=== PATIENT | male | born 1935 | race Caucasian/White ===

== ENCOUNTER → 2016-08-23 | Outpatient (CLI) | payer MEDICARE, OTHER ==
[2015-12-04 21:02] VITALS: BP 149/73
[~2016-08-23] MED LIST: CENTURY; CIPRO 500MG TA500 MG; CLOBETASOL PROP0.053 TP; CLOPIDOGREL75 MG; FERROUS SULFATE1 GRA; HYDROXYZINE HCL25 MG PO; LEVAQUIN 5500 MG/TA1 PO; LISINOPRIL10 MG PO; LISINOPRIL20 MG; LOVASTATIN40 MG PO; METFORMIN500 MG; METOPROLOL SUC100 MG; RAPAFLO8 MG; SILDENAFIL CITR20 MG PO; TRIAMCINOLONE A15 GM TP; ZOLPIDEM10 M1; ZOLPIDEM10 MG PO
== END ==
LOC: LAB 07:57
DX: I10 Essential (primary) hypertension (principal); E11.9 Type 2 diabetes mellitus without complications; Z12.5 Encounter for screening for malignant neoplasm of prostate; N52.03 Combined arterial insufficiency and corporo-venous occlusive erectile dysfunction; R20.2 Paresthesia of skin

== ENCOUNTER → 2016-08-25 | Outpatient (CLI) | payer MEDICARE, OTHER ==
[2015-12-04 21:02] VITALS: BP 149/73
== END ==
LOC: RAD 09:01
DX: M54.5 Low back pain (principal); R31.9 Hematuria, unspecified

== ENCOUNTER → 2016-08-29 | Outpatient (CLI) | payer MEDICARE, OTHER ==
[2015-12-04 21:02] VITALS: BP 149/73
== END ==
LOC: RAD 07:49
DX: M54.16 Radiculopathy, lumbar region (principal); R20.2 Paresthesia of skin; M51.27 Other intervertebral disc displacement, lumbosacral region; M48.07 Spinal stenosis, lumbosacral region
CPT/HCPCS: A9579

== ENCOUNTER 2016-09-09 16:00 | Outpatient (RCR) | payer MEDICARE, OTHER ==
[2015-12-04 21:02] VITALS: BP 149/73
== END 2016-09-23 08:54 | disposition home or self-care (01) ==
LOC: PT 16:00
DX: M54.2 Cervicalgia (principal); M15.9 Polyosteoarthritis, unspecified

== ENCOUNTER → 2017-05-17 | Outpatient (CLI) | payer MEDICARE, OTHER ==
[2015-12-04 21:02] VITALS: BP 149/73
[2017-05-17 08:03] LABS: EOS # 0.3 (0.04-0.40); EOS % 4.9 % (0.0-4.0); HEMATOCRIT 42.9 % (42.0-52.0); HEMOGLOBIN 13.9 g/dL (13.5-18.0); LYMPH# 1.1 (1.50-4.00); MEAN CELL VOLUME 92 fl (78-100); MEAN CORPUSCULAR HEMOGLOBIN 30 pg (27-31); MEAN CORPUSCULAR HGB CONC 32 g/dL (33-37); MEAN PLATELET VOLUME 10.1 fl (7.4-10.4); MONO # 0.5 (0.20-0.80); NEU # 3.2 (1.40-6.50); PLATELET COUNT 161 K/mm3 (130-400); RED BLOOD COUNT 4.68 M/mm3 (4.20-5.60); RED CELL DISTRIBUTION WIDTH 13.3 % (11.5-14.5); WHITE BLOOD COUNT 5.1 K/mm3 (4.8-10.8)
[2017-05-17 08:20] LABS: ALBUMIN 3.7 g/dL (3.5-5.0); BUN/CREATININE RATIO 10.3 (6.0-26.0); CALCIUM 9.5 mg/dL (8.4-10.2); POTASSIUM 3.8 mmol/L (3.6-5.0); TOTAL PROTEIN 6.7 g/dL (6.3-8.2)
[2017-05-18 03:43] LABS: TESTOSTERONE 362 ng/dL (221-716)
== END ==
LOC: LAB 07:47
PROVIDERS: Internal Medicine
DX: I10 Essential (primary) hypertension (principal); N52.03 Combined arterial insufficiency and corporo-venous occlusive erectile dysfunction; N52.9 Male erectile dysfunction, unspecified; R20.2 Paresthesia of skin; M10.9 Gout, unspecified; Z88.0 Allergy status to penicillin

== ENCOUNTER → 2017-06-07 | Outpatient (CLI) | payer MEDICARE, OTHER ==
[2015-12-04 21:02] VITALS: BP 149/73
== END ==
LOC: RAD 09:03
DX: S22.080G Wedge compression fracture of T11-T12 vertebra, subsequent encounter for fracture with delayed healing (principal); M48.07 Spinal stenosis, lumbosacral region; M51.27 Other intervertebral disc displacement, lumbosacral region; Z88.0 Allergy status to penicillin
CPT/HCPCS: A9585

== ENCOUNTER → 2017-12-19 | Outpatient (CLI) | payer MEDICARE, OTHER ==
[2015-12-04 21:02] VITALS: BP 149/73
== END ==
LOC: LAB 11:14
DX: R97.20 Elevated prostate specific antigen [PSA] (principal)

== ENCOUNTER → 2018-02-08 | Outpatient (CLI) | payer MEDICARE, OTHER ==
[2015-12-04 21:02] VITALS: BP 149/73
== END ==
LOC: LAB 12:44
PROVIDERS: Urology
DX: C61 Malignant neoplasm of prostate (principal)

== ENCOUNTER → 2018-02-14 | Outpatient (CLI) | payer MEDICARE, OTHER ==
[2015-12-04 21:02] VITALS: BP 149/73
[~2018-02-14] MED LIST changes: +CLOPIDOGREL PO; +GLUCOPHAGE500 MG/TAB PO; +NORVASC 10MG10 MG PO
== END ==
LOC: LAB 14:12
PROVIDERS: Urology
DX: C61 Malignant neoplasm of prostate (principal); R31.21 Asymptomatic microscopic hematuria

== ENCOUNTER 2018-02-19 20:26 | Emergency (ER) | payer MEDICARE, OTHER ==
[~2018-02-19 20:26] MED LIST changes: -CLOPIDOGREL PO; -GLUCOPHAGE500 MG/TAB PO; -NORVASC 10MG10 MG PO
[2018-02-19 20:52] LABS: EOS # 0.1 (0.04-0.40); EOS % 0.8 % (0.0-4.0); HEMATOCRIT 45.2 % (42.0-52.0); HEMOGLOBIN 14.9 g/dL (13.5-18.0); LYMPH# 2.9 (1.50-4.00); MEAN CELL VOLUME 90 fl (78-100); MEAN CORPUSCULAR HEMOGLOBIN 30 pg (27-31); MEAN CORPUSCULAR HGB CONC 33 g/dL (33-37); MEAN PLATELET VOLUME 10.4 fl (7.4-10.4); MONO # 1.3 (0.20-0.80); NEU # 8.6 (1.40-6.50); PLATELET COUNT 227 K/mm3 (130-400); RED BLOOD COUNT 5.02 M/mm3 (4.20-5.60); RED CELL DISTRIBUTION WIDTH 13.8 % (11.5-14.5); WHITE BLOOD COUNT 12.9 K/mm3 (4.8-10.8)
[2018-02-19 20:59] LABS: ALBUMIN 3.9 g/dL (3.5-5.0); CALCIUM 9.7 mg/dL (8.4-10.2); POTASSIUM 3.5 mmol/L (3.6-5.0); TOTAL BILIRUBIN 1.3 mg/dL (0.2-1.3); TOTAL PROTEIN 6.7 g/dL (6.3-8.2)
[2018-02-19 21:06] LABS: PROTHROMBIN TIME 10.4 SECONDS (9.0-12.0)
[2018-02-19 22:25] LABS: LIPASE 69 U/L (23-300)
[2018-02-19] MEDS ORDERED: GLUCOPHAGE500 MG/TAB PO (22:33)
[2018-02-19] MEDS ORDERED: NORVASC 10MG10 MG PO (22:34)
[2018-02-19] MEDS ORDERED: CLOPIDOGREL PO (22:34)
[2018-02-19 22:46] LABS: URINE APPEARANCE CLEAR; URINE BILIRUBIN NEGATIVE (NEGATIVE); URINE COLOR YELLOW; URINE GLUCOSE NEGATIVE (NEGATIVE); URINE KETONE NEGATIVE (NEGATIVE); URINE NITRATE NEGATIVE (NEGATIVE); URINE PROTEIN(semi-quant) TRACE mg/dL (NEGATIVE); URINE UROBILINOGEN NORMAL (NORMAL)
[2018-02-19 22:47] LABS: URINE BLOOD TRACE (NEGATIVE); URINE LEUKOCYTE ESTERASE NEGATIVE (NEGATIVE); URINE MUCUS PRESENT (NOT PRESENT); URINE WBC 0-1 /hpf (0-3)
[2018-02-19 22:48] VITALS: BP 141/77
== END 2018-02-19 22:48 | disposition other institution (70) ==
LOC: ED 20:26
PROVIDERS: Nurse Practitioner
DX: A41.9 Sepsis, unspecified organism (principal); K57.32 Diverticulitis of large intestine without perforation or abscess without bleeding; C61 Malignant neoplasm of prostate; Z87.19 Personal history of other diseases of the digestive system; Z87.891 Personal history of nicotine dependence; Z79.02 Long term (current) use of antithrombotics/antiplatelets; Z79.84 Long term (current) use of oral hypoglycemic drugs; Z79.899 Other long term (current) drug therapy
CPT/HCPCS: J2060; J3010; Q9967

== ENCOUNTER 2018-02-19 22:48 | Inpatient (IN) | payer MEDICARE, OTHER ==
[~2018-02-19] VITALS: Ht 172.7 cm; Wt 76.8 kg
[~2018-02-19 22:48] MED LIST changes: +CLOPIDOGREL PO; +GLUCOPHAGE500 MG/TAB PO; +NORVASC 10MG10 MG PO
[2018-02-19 23:58] VITALS: BP 141/77
[2018-02-20 00:02] VITALS: BP 141/77
[2018-02-20 05:15] LABS: HEMATOCRIT 41.8 % (42.0-52.0); HEMOGLOBIN 13.9 g/dL (13.5-18.0); MEAN CELL VOLUME 91 fl (78-100); MEAN CORPUSCULAR HEMOGLOBIN 30 pg (27-31); MEAN CORPUSCULAR HGB CONC 33 g/dL (33-37); MEAN PLATELET VOLUME 10.6 fl (7.4-10.4); PLATELET COUNT 154 K/mm3 (130-400); RED BLOOD COUNT 4.61 M/mm3 (4.20-5.60); RED CELL DISTRIBUTION WIDTH 13.9 % (11.5-14.5); WHITE BLOOD COUNT 14.1 K/mm3 (4.8-10.8)
[2018-02-20 05:28] LABS: ALBUMIN 3.1 g/dL (3.5-5.0); CALCIUM 8.7 mg/dL (8.4-10.2); POTASSIUM 3.4 mmol/L (3.6-5.0); TOTAL BILIRUBIN 3.7 mg/dL (0.2-1.3); TOTAL PROTEIN 5.5 g/dL (6.3-8.2)
[2018-02-20 05:32] LABS: BAND 10 % (0-10); LYMPHOCYTE 10 % (20-51); MONOCYTE 7 % (3-10); NEUTROPHILS 73 % (42-75)
[2018-02-20 05:33] LABS: OVALOCYTES 1+
[2018-02-20 06:19] VITALS: BP 117/67
[2018-02-20 10:55] VITALS: BP 149/79
[2018-02-20 12:35] LABS: HEMATOCRIT 42.2 % (42.0-52.0); HEMOGLOBIN 13.8 g/dL (13.5-18.0); MEAN CELL VOLUME 92 fl (78-100); MEAN CORPUSCULAR HEMOGLOBIN 30 pg (27-31); MEAN CORPUSCULAR HGB CONC 33 g/dL (33-37); MEAN PLATELET VOLUME 10.2 fl (7.4-10.4); PLATELET COUNT 161 K/mm3 (130-400); RED BLOOD COUNT 4.61 M/mm3 (4.20-5.60); RED CELL DISTRIBUTION WIDTH 14.1 % (11.5-14.5); WHITE BLOOD COUNT 16.3 K/mm3 (4.8-10.8)
[2018-02-20 12:43] LABS: URINE APPEARANCE CLEAR; URINE BILIRUBIN NEGATIVE (NEGATIVE); URINE BLOOD 250 ery/uL (NEGATIVE); URINE COLOR YELLOW; URINE GLUCOSE 50 mg/dL mg/dL (NEGATIVE); URINE KETONE 1+ (NEGATIVE); URINE LEUKOCYTE ESTERASE NEGATIVE (NEGATIVE); URINE NITRATE NEGATIVE (NEGATIVE); URINE PROTEIN(semi-quant) 1+ mg/dL (NEGATIVE); URINE UROBILINOGEN 1 mg/dL (NORMAL)
[2018-02-20 12:44] LABS: URINE MUCUS PRESENT (NOT PRESENT)
[2018-02-20 12:45] LABS: ALBUMIN 3.1 g/dL (3.5-5.0); CALCIUM 8.6 mg/dL (8.4-10.2); TOTAL BILIRUBIN 6.1 mg/dL (0.2-1.3); TOTAL PROTEIN 5.6 g/dL (6.3-8.2)
[2018-02-20 13:11] LABS: LYMPHOCYTE 9 % (20-51); NEUTROPHILS 85 % (42-75)
[2018-02-20 13:12] LABS: MONOCYTE 5 % (3-10)
[2018-02-20 14:24] VITALS: BP 129/65
== END 2018-02-20 16:21 | disposition short-term general hospital (02) | DRG 872 ==
LOC: MED/SURG 22:48
PROVIDERS: Internal Medicine; Nurse Practitioner Primary Care; ADMIT Nurse Practitioner
DX: A41.9 Sepsis, unspecified organism (principal); K57.92 Diverticulitis of intestine, part unspecified, without perforation or abscess without bleeding; E11.9 Type 2 diabetes mellitus without complications; C61 Malignant neoplasm of prostate; I10 Essential (primary) hypertension; Z87.891 Personal history of nicotine dependence; R10.32 Left lower quadrant pain
CPT/HCPCS: J1200; J1650; J1956; J2270; J2405; J3490; J7030

== ENCOUNTER 2018-03-02 13:11 | Emergency (ER) | payer MEDICARE, OTHER ==
[~2018-03-02] VITALS: Wt 79.8 kg
[2018-03-02] MEDS ORDERED: LEVOFLOXACIN750 MG PO (13:23)
[2018-03-02] MEDS ORDERED: METRONIDAZOLE500 M1 PO (13:23)
[2018-03-02] MEDS ORDERED: FLORANEX GRANULE5 MG PO (13:24)
[2018-03-02] MEDS ORDERED: ALEVE PM CAPLE1 EACH PO (13:27)
[2018-03-02 13:53] LABS: HEMATOCRIT 35.2 % (42.0-52.0); HEMOGLOBIN 11.2 g/dL (13.5-18.0); MEAN CELL VOLUME 93 fl (78-100); MEAN CORPUSCULAR HEMOGLOBIN 30 pg (27-31); MEAN CORPUSCULAR HGB CONC 32 g/dL (33-37); MEAN PLATELET VOLUME 10.3 fl (7.4-10.4); PLATELET COUNT 239 K/mm3 (130-400); WHITE BLOOD COUNT 10.7 K/mm3 (4.8-10.8)
[2018-03-02 14:09] LABS: ALBUMIN 2.7 g/dL (3.5-5.0); CALCIUM 8.7 mg/dL (8.4-10.2); POTASSIUM 3.8 mmol/L (3.6-5.0); TOTAL BILIRUBIN 0.6 mg/dL (0.2-1.3); TOTAL PROTEIN 5.6 g/dL (6.3-8.2)
[2018-03-02 14:13] LABS: HYPOCHROMIA 1+; LYMPHOCYTE 8 % (20-51); MONOCYTE 5 % (3-10); NEUTROPHILS 85 % (42-75)
[2018-03-02 14:36] LABS: URINE APPEARANCE CLEAR; URINE BILIRUBIN NEGATIVE (NEGATIVE); URINE BLOOD NEGATIVE (NEGATIVE); URINE COLOR YELLOW; URINE GLUCOSE NEGATIVE (NEGATIVE); URINE KETONE NEGATIVE (NEGATIVE); URINE LEUKOCYTE ESTERASE TRACE (NEGATIVE); URINE NITRATE NEGATIVE (NEGATIVE); URINE PROTEIN(semi-quant) NEGATIVE (NEGATIVE); URINE UROBILINOGEN NORMAL (NORMAL); URINE WBC 0-1 /hpf (0-3)
[2018-03-02 18:40] VITALS: BP 152/96
[2018-03-03] MEDS ORDERED: ACETAMINOPHEN-H1 TA2 PO (11:39)
[2018-03-03] MEDS ORDERED: ERTAPENEM1 GM IJ (11:41)
== END 2018-03-02 18:45 | disposition other institution (70) ==
LOC: ED 13:11
PROVIDERS: Nurse Practitioner Primary Care
DX: K57.80 Diverticulitis of intestine, part unspecified, with perforation and abscess without bleeding (principal); E11.9 Type 2 diabetes mellitus without complications; I10 Essential (primary) hypertension; Z88.0 Allergy status to penicillin; Z79.01 Long term (current) use of anticoagulants; Z85.46 Personal history of malignant neoplasm of prostate; Z86.79 Personal history of other diseases of the circulatory system; Z98.49 Cataract extraction status, unspecified eye; Z90.49 Acquired absence of other specified parts of digestive tract; Z87.19 Personal history of other diseases of the digestive system
CPT/HCPCS: J1335; Q9965; Q9967

== ENCOUNTER 2018-03-02 18:24 | Observation (INO) | payer MEDICARE, OTHER ==
[~2018-03-02] VITALS: Ht 172.7 cm; Wt 76.2 kg
[~2018-03-02 18:24] MED LIST changes: +ALEVE PM CAPLE1 EACH PO; +FLORANEX GRANULE5 MG PO; +LEVOFLOXACIN750 MG PO; +METRONIDAZOLE500 M1 PO
[2018-03-02 19:49] VITALS: BP 156/84
[2018-03-02 19:53] VITALS: BP 156/84
[2018-03-02 23:28] VITALS: BP 131/78
[2018-03-03 03:30] VITALS: BP 141/80
[2018-03-03 06:29] VITALS: BP 139/67
[2018-03-03 07:12] VITALS: BP 126/72
[2018-03-03 11:09] VITALS: BP 128/76
[2018-03-03] MEDS ORDERED: ACETAMINOPHEN-H1 TA2 PO (11:39)
[2018-03-03] MEDS ORDERED: ERTAPENEM1 GM IJ (11:41)
== END 2018-03-03 12:04 | disposition short-term general hospital (02) ==
LOC: MED/SURG 18:24
PROVIDERS: ADMIT Family Medicine
DX: K57.20 Diverticulitis of large intestine with perforation and abscess without bleeding (principal); I10 Essential (primary) hypertension; E10.9 Type 1 diabetes mellitus without complications; I70.0 Atherosclerosis of aorta; F10.99 Alcohol use, unspecified with unspecified alcohol-induced disorder; Z79.02 Long term (current) use of antithrombotics/antiplatelets; Z88.0 Allergy status to penicillin; Z85.46 Personal history of malignant neoplasm of prostate; Z87.81 Personal history of (healed) traumatic fracture; Z87.891 Personal history of nicotine dependence; Z98.49 Cataract extraction status, unspecified eye; Z90.49 Acquired absence of other specified parts of digestive tract
CPT/HCPCS: G0378

== ENCOUNTER → 2018-03-17 | Outpatient (CLI) | payer MEDICARE, OTHER ==
[2018-03-03 11:09] VITALS: BP 128/76
[~2018-03-17] MED LIST changes: +ACETAMINOPHEN-H1 TA2 PO; +ACIDOPHILUS1 EAC2 PO; +AUGMENTIN 875-1 EAC1 PO; +DIFLUCAN200 M1 PO; +DOCUSATE SODIUM1 TA3 PO; +ERTAPENEM1 GM IJ; +PROTONIX TR40 M1 PO; +VIBRAMYCIN HYC100 MG PO
[2018-03-17 13:24] LABS: URINE APPEARANCE HAZY; URINE COLOR YELLOW
[2018-03-17 13:25] LABS: URINE BILIRUBIN NEGATIVE (NEGATIVE); URINE BLOOD TRACE (NEGATIVE); URINE GLUCOSE NEGATIVE (NEGATIVE); URINE KETONE NEGATIVE (NEGATIVE); URINE LEUKOCYTE ESTERASE 1+ (NEGATIVE); URINE NITRATE NEGATIVE (NEGATIVE); URINE PROTEIN(semi-quant) TRACE mg/dL (NEGATIVE); URINE UROBILINOGEN NORMAL (NORMAL)
[2018-03-17 13:26] LABS: URINE MUCUS PRESENT (NOT PRESENT)
== END ==
LOC: LAB 10:04
PROVIDERS: Internal Medicine
DX: R35.0 Frequency of micturition (principal)

== ENCOUNTER → 2018-03-19 | Outpatient (CLI) | payer MEDICARE, OTHER ==
[~2018-03-19] VITALS: Ht 172.7 cm; Wt 74.1 kg
[2018-03-19 16:55] LABS: EOS # 0.4 (0.04-0.40); EOS % 4.3 % (0.0-4.0); HEMOGLOBIN 12.7 g/dL (13.5-18.0); LYMPH# 1.8 (1.50-4.00); MEAN CELL VOLUME 91 fl (78-100); MEAN CORPUSCULAR HEMOGLOBIN 29 pg (27-31); MEAN CORPUSCULAR HGB CONC 32 g/dL (33-37); MEAN PLATELET VOLUME 10.1 fl (7.4-10.4); MONO # 0.7 (0.20-0.80); NEU # 5.2 (1.40-6.50); PLATELET COUNT 225 K/mm3 (130-400); WHITE BLOOD COUNT 8.1 K/mm3 (4.8-10.8)
[2018-03-19 17:00] VITALS: BP 143/97
[2018-03-19 17:43] LABS: ALBUMIN 3.8 g/dL (3.5-5.0); CALCIUM 9.5 mg/dL (8.4-10.2); POTASSIUM 3.9 mmol/L (3.6-5.0); TOTAL BILIRUBIN 0.7 mg/dL (0.2-1.3); TOTAL PROTEIN 7.4 g/dL (6.3-8.2)
[2018-03-23 08:56] LABS: METHYLMALONIC ACID, SERUM 0.37 nmol/mL (<=0.40)
== END ==
LOC: LAB 16:33
PROVIDERS: Internal Medicine
DX: I49.9 Cardiac arrhythmia, unspecified (principal); E11.9 Type 2 diabetes mellitus without complications; I10 Essential (primary) hypertension; E53.8 Deficiency of other specified B group vitamins

== ENCOUNTER → 2018-03-29 | Outpatient (CLI) | payer MEDICARE, OTHER ==
[2018-03-19 17:00] VITALS: BP 143/97
== END ==
LOC: LAB 08:06
DX: R20.2 Paresthesia of skin (principal)

== ENCOUNTER → 2018-04-11 | Day surgery (SDC) | payer MEDICARE, OTHER ==
[2018-03-19 17:00] VITALS: BP 143/97
== END ==
LOC: MSO 08:42
DX: H26.492 Other secondary cataract, left eye (principal); I10 Essential (primary) hypertension; Z79.84 Long term (current) use of oral hypoglycemic drugs; Z79.02 Long term (current) use of antithrombotics/antiplatelets; Z88.0 Allergy status to penicillin

== ENCOUNTER 2018-04-16 08:00 | Outpatient (RCR) | payer MEDICARE, OTHER ==
[2018-03-19 17:00] VITALS: BP 143/97
== END 2018-04-16 08:30 | disposition still patient (30) ==
LOC: OT 08:00
DX: R53.1 Weakness (principal); K57.20 Diverticulitis of large intestine with perforation and abscess without bleeding

== ENCOUNTER → 2018-04-16 | Outpatient (CLI) | payer MEDICARE, OTHER ==
[2018-03-19 17:00] VITALS: BP 143/97
== END ==
LOC: RAD 11:23
DX: M54.2 Cervicalgia (principal); M47.892 Other spondylosis, cervical region
CPT/HCPCS: A9585

== ENCOUNTER → 2018-05-07 | Outpatient (CLI) | payer MEDICARE, OTHER ==
[2018-03-19 17:00] VITALS: BP 143/97
== END ==
LOC: LAB 07:49
DX: C61 Malignant neoplasm of prostate (principal)

== ENCOUNTER → 2018-06-19 | Outpatient (CLI) | payer MEDICARE, OTHER ==
[2018-03-19 17:00] VITALS: BP 143/97
== END ==
LOC: LAB 14:19
PROVIDERS: Radiology Radiation Oncology
DX: C61 Malignant neoplasm of prostate (principal); I10 Essential (primary) hypertension

== ENCOUNTER → 2018-06-26 | Outpatient (CLI) | payer MEDICARE, OTHER ==
[2018-03-19 17:00] VITALS: BP 143/97
[2018-06-26 14:49] LABS: EOS # 0.2 (0.04-0.40); EOS % 2.4 % (0.0-4.0); HEMATOCRIT 42.2 % (42.0-52.0); HEMOGLOBIN 13.6 g/dL (13.5-18.0); LYMPH# 1.6 (1.50-4.00); MEAN CELL VOLUME 91 fl (78-100); MEAN CORPUSCULAR HEMOGLOBIN 29 pg (27-31); MEAN CORPUSCULAR HGB CONC 32 g/dL (33-37); MEAN PLATELET VOLUME 10.1 fl (7.4-10.4); MONO # 0.6 (0.20-0.80); NEU # 4.4 (1.40-6.50); PLATELET COUNT 153 K/mm3 (130-400); RED BLOOD COUNT 4.63 M/mm3 (4.20-5.60); RED CELL DISTRIBUTION WIDTH 13.1 % (11.5-14.5); WHITE BLOOD COUNT 6.7 K/mm3 (4.8-10.8)
== END ==
LOC: LAB 14:37
PROVIDERS: Radiology Radiation Oncology
DX: C61 Malignant neoplasm of prostate (principal); I10 Essential (primary) hypertension

== ENCOUNTER → 2018-07-11 | Outpatient (CLI) | payer MEDICARE, OTHER ==
[2018-03-19 17:00] VITALS: BP 143/97
[2018-07-11 14:05] LABS: EOS # 0.2 (0.04-0.40); EOS % 3.4 % (0.0-4.0); HEMATOCRIT 41.8 % (42.0-52.0); HEMOGLOBIN 13.4 g/dL (13.5-18.0); LYMPH# 1.3 (1.50-4.00); MEAN CELL VOLUME 91 fl (78-100); MEAN CORPUSCULAR HEMOGLOBIN 29 pg (27-31); MEAN CORPUSCULAR HGB CONC 32 g/dL (33-37); MEAN PLATELET VOLUME 10.2 fl (7.4-10.4); MONO # 0.6 (0.20-0.80); NEU # 3.5 (1.40-6.50); PLATELET COUNT 140 K/mm3 (130-400); RED BLOOD COUNT 4.58 M/mm3 (4.20-5.60); RED CELL DISTRIBUTION WIDTH 13.3 % (11.5-14.5); WHITE BLOOD COUNT 5.6 K/mm3 (4.8-10.8)
== END ==
LOC: LAB 13:50
PROVIDERS: Radiology Radiation Oncology
DX: C61 Malignant neoplasm of prostate (principal); I10 Essential (primary) hypertension

== ENCOUNTER → 2018-07-24 | Outpatient (CLI) | payer MEDICARE, OTHER ==
[2018-03-19 17:00] VITALS: BP 143/97
[2018-07-24 10:44] LABS: EOS # 0.1 (0.04-0.40); EOS % 1.6 % (0.0-4.0); HEMATOCRIT 39.3 % (42.0-52.0); HEMOGLOBIN 12.8 g/dL (13.5-18.0); LYMPH# 0.9 (1.50-4.00); MEAN CELL VOLUME 91 fl (78-100); MEAN CORPUSCULAR HEMOGLOBIN 30 pg (27-31); MEAN CORPUSCULAR HGB CONC 33 g/dL (33-37); MEAN PLATELET VOLUME 10.3 fl (7.4-10.4); MONO # 0.8 (0.20-0.80); NEU # 5.5 (1.40-6.50); PLATELET COUNT 132 K/mm3 (130-400); RED CELL DISTRIBUTION WIDTH 13.1 % (11.5-14.5); WHITE BLOOD COUNT 7.4 K/mm3 (4.8-10.8)
== END ==
LOC: LAB 10:14
PROVIDERS: Radiology Radiation Oncology
DX: C61 Malignant neoplasm of prostate (principal); I10 Essential (primary) hypertension

== ENCOUNTER → 2018-08-01 | Outpatient (CLI) | payer MEDICARE, OTHER ==
[2018-03-19 17:00] VITALS: BP 143/97
== END ==
LOC: VAS 07-30 10:25
DX: I08.0 Rheumatic disorders of both mitral and aortic valves (principal); I51.7 Cardiomegaly; I70.0 Atherosclerosis of aorta

== ENCOUNTER 2018-08-19 23:41 | Inpatient (IN) | payer MEDICARE, OTHER ==
[~2018-08-19] VITALS: Ht 172.7 cm; Wt 78.0 kg
[~2018-08-19 23:41] MED LIST changes: +BYSTOLIC5 MG PO; +FLOMAX0.4 MG PO; +GLUCOPHAGE PO
[2018-08-20 00:51] VITALS: BP 129/63
[2018-08-20 03:10] VITALS: BP 128/68
[2018-08-20 06:17] VITALS: BP 136/70
[2018-08-20 06:49] LABS: EOS # 0.2 (0.04-0.40); EOS % 3.8 % (0.0-4.0); HEMATOCRIT 34.5 % (42.0-52.0); HEMOGLOBIN 10.8 g/dL (13.5-18.0); LYMPH# 0.9 (1.50-4.00); MEAN CELL VOLUME 94 fl (78-100); MEAN CORPUSCULAR HEMOGLOBIN 29 pg (27-31); MEAN CORPUSCULAR HGB CONC 31 g/dL (33-37); MEAN PLATELET VOLUME 10.5 fl (7.4-10.4); MONO # 0.5 (0.20-0.80); NEU # 2.6 (1.40-6.50); PLATELET COUNT 110 K/mm3 (130-400); RED BLOOD COUNT 3.69 M/mm3 (4.20-5.60); RED CELL DISTRIBUTION WIDTH 14.1 % (11.5-14.5); WHITE BLOOD COUNT 4.2 K/mm3 (4.8-10.8)
[2018-08-20 07:00] LABS: CALCIUM 8.9 mg/dL (8.3-10.5)
[2018-08-20 11:38] VITALS: BP 122/60
== END 2018-08-20 13:25 | disposition home or self-care (01) | DRG 394 ==
LOC: MED/SURG 23:41
PROVIDERS: ADMIT Family Medicine
DX: K62.7 Radiation proctitis (principal); K62.5 Hemorrhage of anus and rectum; Y84.2 Radiological procedure and radiotherapy as the cause of abnormal reaction of the patient, or of later complication, without mention of misadventure at the time of the procedure; C61 Malignant neoplasm of prostate; I10 Essential (primary) hypertension; E11.9 Type 2 diabetes mellitus without complications; Z86.718 Personal history of other venous thrombosis and embolism; Z87.891 Personal history of nicotine dependence
CPT/HCPCS: J7120

== ENCOUNTER → 2018-08-21 | Outpatient (CLI) | payer MEDICARE, OTHER ==
[2018-08-20 11:38] VITALS: BP 122/60
[2018-08-21 10:42] LABS: HEMATOCRIT 33.5 % (42.0-52.0); HEMOGLOBIN 10.6 g/dL (13.5-18.0); MEAN CELL VOLUME 94 fl (78-100); MEAN CORPUSCULAR HEMOGLOBIN 30 pg (27-31); MEAN CORPUSCULAR HGB CONC 32 g/dL (33-37); MEAN PLATELET VOLUME 10.1 fl (7.4-10.4); PLATELET COUNT 113 K/mm3 (130-400); RED BLOOD COUNT 3.56 M/mm3 (4.20-5.60); RED CELL DISTRIBUTION WIDTH 14.2 % (11.5-14.5); WHITE BLOOD COUNT 3.8 K/mm3 (4.8-10.8)
[2018-08-21 11:07] LABS: LYMPHOCYTE 18 % (20-51); MONOCYTE 9 % (3-10); NEUTROPHILS 72 % (42-75); OVALOCYTES 1+
== END ==
LOC: LAB 10:19
PROVIDERS: Nurse Practitioner Primary Care
DX: C61 Malignant neoplasm of prostate (principal); I10 Essential (primary) hypertension

== ENCOUNTER 2018-08-31 08:30 | Outpatient (RCR) | payer MEDICARE, OTHER ==
[2018-03-19 17:00] VITALS: BP 143/97
== END 2018-08-31 09:00 | disposition still patient (30) ==
LOC: OT 08:30
DX: M19.041 Primary osteoarthritis, right hand (principal); R20.2 Paresthesia of skin; R53.1 Weakness

== ENCOUNTER 2018-09-20 08:10 | Emergency (ER) | payer MEDICARE, OTHER ==
[2018-09-20] MEDS ORDERED: CLOPIDOGREL75 M2 PO (08:20)
[2018-09-20 10:38] VITALS: BP 153/71
== END 2018-09-20 10:27 | disposition home or self-care (01) ==
LOC: ED 08:10
DX: S51.811A Laceration without foreign body of right forearm, initial encounter (principal); I10 Essential (primary) hypertension; E11.9 Type 2 diabetes mellitus without complications; Z79.84 Long term (current) use of oral hypoglycemic drugs; Z79.02 Long term (current) use of antithrombotics/antiplatelets; Z23 Encounter for immunization; Z87.891 Personal history of nicotine dependence; W20.8XXA Other cause of strike by thrown, projected or falling object, initial encounter; Y92.009 Unspecified place in unspecified non-institutional (private) residence as the place of occurrence of the external cause
CPT/HCPCS: 90715

== ENCOUNTER → 2018-10-01 | Outpatient (CLI) | payer MEDICARE, OTHER ==
[2018-09-20 10:38] VITALS: BP 153/71
[~2018-10-01] MED LIST changes: +CLOPIDOGREL75 M2 PO
[2018-10-01 09:05] LABS: URINE APPEARANCE CLEAR; URINE BILIRUBIN NEGATIVE (NEGATIVE); URINE BLOOD NEGATIVE (NEGATIVE); URINE COLOR YELLOW; URINE GLUCOSE NEGATIVE (NEGATIVE); URINE KETONE NEGATIVE (NEGATIVE); URINE LEUKOCYTE ESTERASE NEGATIVE (NEGATIVE); URINE NITRATE NEGATIVE (NEGATIVE); URINE PROTEIN(semi-quant) TRACE mg/dL (NEGATIVE); URINE UROBILINOGEN NORMAL (NORMAL)
[2018-10-01 09:06] LABS: URINE MUCUS PRESENT (NOT PRESENT)
== END ==
LOC: LAB 07:50
DX: C61 Malignant neoplasm of prostate (principal); I10 Essential (primary) hypertension; R30.0 Dysuria

== ENCOUNTER → 2018-11-05 | Outpatient (CLI) | payer MEDICARE, OTHER | LOC: LAB 08:59 | DX: C61 Malignant neoplasm of prostate (principal) ==

== ENCOUNTER 2018-11-14 07:20 | Emergency (ER) | payer MEDICARE, OTHER ==
[2018-11-14] MEDS ORDERED: NEURONTIN300 MG/CAP (07:44)
[2018-11-14] MEDS ORDERED: TOPROL XL 50MG50 MG PO (07:44)
[2018-11-14 07:46] LABS: HEMATOCRIT 41.3 % (42.0-52.0); HEMOGLOBIN 13.4 g/dL (13.5-18.0); MEAN CELL VOLUME 92 fl (78-100); MEAN CORPUSCULAR HEMOGLOBIN 30 pg (27-31); MEAN CORPUSCULAR HGB CONC 32 g/dL (33-37); MEAN PLATELET VOLUME 10.6 fl (7.4-10.4); PLATELET COUNT 137 K/mm3 (130-400); RED BLOOD COUNT 4.47 M/mm3 (4.20-5.60); RED CELL DISTRIBUTION WIDTH 12.7 % (11.5-14.5); WHITE BLOOD COUNT 5.5 K/mm3 (4.8-10.8)
[2018-11-14 07:58] LABS: ALBUMIN 3.9 g/dL (3.4-4.8); POTASSIUM 3.7 mmol/L (3.5-5.1); SODIUM 139 mmol/L (136-145)
[2018-11-14 07:59] LABS: CALCIUM 9.5 mg/dL (8.3-10.5); PROTHROMBIN TIME 9.9 SECONDS (9.0-12.0)
[2018-11-14 08:00] LABS: LYMPHOCYTE 11 % (20-51); MONOCYTE 10 % (3-10); NEUTROPHILS 76 % (42-75)
[2018-11-14 08:01] LABS: GLUCOSE 238 mg/dL (75-110); TOTAL PROTEIN 6.7 g/dL (6.2-8.1)
[2018-11-14 08:02] LABS: CARBON DIOXIDE 25 mmol/L (23-31)
[2018-11-14 08:03] LABS: TOTAL BILIRUBIN 1.3 mg/dL (0.2-1.2)
[2018-11-14 08:06] LABS: AST-SGOT 19 U/L (5-34)
[2018-11-14 08:07] LABS: ALT/SGPT 17 U/L (0-55)
[2018-11-14 08:19] LABS: TROPONIN-I < 0.03 ng/mL (<0.030)
[2018-11-14 10:04] LABS: URINE APPEARANCE CLEAR; URINE COLOR YELLOW; URINE PROTEIN(semi-quant) NEGATIVE (NEGATIVE)
[2018-11-14 10:05] LABS: URINE BILIRUBIN NEGATIVE (NEGATIVE); URINE BLOOD TRACE (NEGATIVE); URINE KETONE NEGATIVE (NEGATIVE); URINE LEUKOCYTE ESTERASE NEGATIVE (NEGATIVE); URINE MUCUS PRESENT (NOT PRESENT); URINE NITRATE NEGATIVE (NEGATIVE); URINE UROBILINOGEN NORMAL (NORMAL)
[2018-11-14 10:50] VITALS: BP 192/98
== END 2018-11-14 10:38 | disposition short-term general hospital (02) ==
LOC: ED 07:20
PROVIDERS: Physician Assistant
DX: I10 Essential (primary) hypertension (principal); R00.8 Other abnormalities of heart beat; E11.9 Type 2 diabetes mellitus without complications; Z79.84 Long term (current) use of oral hypoglycemic drugs; Z79.02 Long term (current) use of antithrombotics/antiplatelets; Z90.49 Acquired absence of other specified parts of digestive tract; Z98.890 Other specified postprocedural states; Z87.891 Personal history of nicotine dependence

== ENCOUNTER → 2018-12-06 | Outpatient (CLI) | payer MEDICARE, OTHER ==
[2018-11-14 10:50] VITALS: BP 192/98
[~2018-12-06] MED LIST changes: +NEURONTIN300 MG/CAP; +TOPROL XL 50MG50 MG PO
== END ==
LOC: RAD 16:49
DX: G31.9 Degenerative disease of nervous system, unspecified (principal); I63.9 Cerebral infarction, unspecified; J32.0 Chronic maxillary sinusitis; C61 Malignant neoplasm of prostate

== ENCOUNTER → 2019-02-04 | Outpatient (CLI) | payer MEDICARE, OTHER ==
[2019-02-04 09:26] LABS: ALBUMIN 3.8 g/dL (3.4-4.8); EOS # 0.1 (0.04-0.40); EOS % 3.4 % (0.0-4.0); HEMATOCRIT 41.8 % (42.0-52.0); HEMOGLOBIN 13.2 g/dL (13.5-18.0); LYMPH# 0.9 (1.50-4.00); MEAN CELL VOLUME 94 fl (78-100); MEAN CORPUSCULAR HEMOGLOBIN 30 pg (27-31); MEAN CORPUSCULAR HGB CONC 32 g/dL (33-37); MEAN PLATELET VOLUME 10.5 fl (7.4-10.4); MONO # 0.5 (0.20-0.80); NEU # 2.6 (1.40-6.50); PLATELET COUNT 133 K/mm3 (130-400); RED BLOOD COUNT 4.45 M/mm3 (4.20-5.60); RED CELL DISTRIBUTION WIDTH 13.9 % (11.5-14.5); WHITE BLOOD COUNT 4.2 K/mm3 (4.8-10.8)
[2019-02-04 09:28] LABS: CALCIUM 9.6 mg/dL (8.3-10.5)
[2019-02-04 09:29] LABS: TOTAL PROTEIN 6.5 g/dL (6.2-8.1)
[2019-02-04 09:31] LABS: TOTAL BILIRUBIN 1.1 mg/dL (0.2-1.2)
== END ==
LOC: LAB 08:58
PROVIDERS: Internal Medicine
DX: E11.9 Type 2 diabetes mellitus without complications (principal); I11.9 Hypertensive heart disease without heart failure

== ENCOUNTER → 2019-05-24 | Outpatient (CLI) | payer MEDICARE, OTHER | LOC: RAD 08:54 | DX: M19.012 Primary osteoarthritis, left shoulder (principal); M85.812 Other specified disorders of bone density and structure, left shoulder ==

== ENCOUNTER 2019-06-03 21:42 | Emergency (ER) | payer MEDICARE, OTHER ==
[~2019-06-03] VITALS: Ht 172.7 cm; Wt 81.8 kg
[~2019-06-03 21:42] MED LIST changes: -NEURONTIN300 MG/CAP; +NEURONTIN300 MG/CAP PO
[2019-06-03 21:49] VITALS: BP 157/93
[2019-06-03] MEDS ORDERED: ULTRAM50 M1 PO (21:55)
[2019-06-03] MEDS ORDERED: AMBIEN10 MG PO (21:56)
== END 2019-06-03 22:22 | disposition home or self-care (01) ==
LOC: ED 21:42
DX: R10.13 Epigastric pain (principal); K21.9 Gastro-esophageal reflux disease without esophagitis; E11.9 Type 2 diabetes mellitus without complications; Z87.891 Personal history of nicotine dependence; Z90.89 Acquired absence of other organs; Z85.46 Personal history of malignant neoplasm of prostate; Z79.02 Long term (current) use of antithrombotics/antiplatelets

== ENCOUNTER → 2019-06-04 | Outpatient (CLI) | payer MEDICARE, OTHER ==
[2019-06-03 21:49] VITALS: BP 157/93
[~2019-06-04] MED LIST changes: +AMBIEN10 MG PO; +ULTRAM50 M1 PO
== END ==
LOC: RAD 08:02
DX: M75.81 Other shoulder lesions, right shoulder (principal); M19.012 Primary osteoarthritis, left shoulder

== ENCOUNTER → 2019-06-06 | Outpatient (CLI) | payer MEDICARE, OTHER ==
[2019-06-03 21:49] VITALS: BP 157/93
[2019-06-06 10:21] LABS: EOS # 0.2 (0.04-0.40); EOS % 3.7 % (0.0-4.0); HEMATOCRIT 42.6 % (42.0-52.0); HEMOGLOBIN 13.9 g/dL (13.5-18.0); LYMPH# 0.8 (1.50-4.00); MEAN CELL VOLUME 96 fl (78-100); MEAN CORPUSCULAR HEMOGLOBIN 31 pg (27-31); MEAN CORPUSCULAR HGB CONC 33 g/dL (33-37); MEAN PLATELET VOLUME 11.1 fl (7.4-10.4); MONO # 0.5 (0.20-0.80); NEU # 3.4 (1.40-6.50); PLATELET COUNT 151 K/mm3 (130-400); RED BLOOD COUNT 4.46 M/mm3 (4.20-5.60); RED CELL DISTRIBUTION WIDTH 13.3 % (11.5-14.5); WHITE BLOOD COUNT 4.9 K/mm3 (4.8-10.8)
[2019-06-06 10:26] LABS: ALBUMIN 3.8 g/dL (3.4-4.8); POTASSIUM 3.8 mmol/L (3.5-5.1)
[2019-06-06 10:27] LABS: CALCIUM 9.5 mg/dL (8.3-10.5)
[2019-06-06 10:28] LABS: TOTAL PROTEIN 6.3 g/dL (6.2-8.1)
[2019-06-06 10:30] LABS: TOTAL BILIRUBIN 0.9 mg/dL (0.2-1.2)
[2019-06-06 23:12] LABS: TESTOSTERONE <13 ng/dL (221-716)
== END ==
LOC: LAB 09:31
PROVIDERS: Internal Medicine
DX: M10.9 Gout, unspecified (principal); I10 Essential (primary) hypertension; E11.9 Type 2 diabetes mellitus without complications; N52.03 Combined arterial insufficiency and corporo-venous occlusive erectile dysfunction; R20.2 Paresthesia of skin

== ENCOUNTER → 2019-12-02 | Outpatient (CLI) | payer MEDICARE, OTHER ==
[2019-12-02 10:53] LABS: URINE APPEARANCE CLOUDY; URINE COLOR YELLOW; URINE PROTEIN(semi-quant) 1+ mg/dL (NEGATIVE)
[2019-12-02 10:54] LABS: URINE BILIRUBIN NEGATIVE (NEGATIVE); URINE BLOOD TRACE (NEGATIVE); URINE GLUCOSE NEGATIVE (NEGATIVE); URINE KETONE NEGATIVE (NEGATIVE); URINE LEUKOCYTE ESTERASE NEGATIVE (NEGATIVE); URINE MUCUS PRESENT (NOT PRESENT); URINE NITRATE NEGATIVE (NEGATIVE); URINE UROBILINOGEN NORMAL (NORMAL)
== END ==
LOC: LAB 07:46
PROVIDERS: Urology
DX: C61 Malignant neoplasm of prostate (principal)

== ENCOUNTER → 2019-12-12 | Outpatient (CLI) | payer MEDICARE, OTHER ==
[2019-12-12 12:11] LABS: EOS # 0.2 (0.04-0.40); EOS % 3.2 % (0.0-4.0); HEMATOCRIT 43.9 % (42.0-52.0); HEMOGLOBIN 14.2 g/dL (13.5-18.0); LYMPH# 1.1 (1.50-4.00); MEAN CELL VOLUME 94 fl (78-100); MEAN CORPUSCULAR HEMOGLOBIN 31 pg (27-31); MEAN CORPUSCULAR HGB CONC 32 g/dL (33-37); MEAN PLATELET VOLUME 9.9 fl (7.4-10.4); MONO # 0.5 (0.20-0.80); NEU # 3.7 (1.40-6.50); PLATELET COUNT 129 K/mm3 (130-400); RED BLOOD COUNT 4.65 M/mm3 (4.20-5.60); RED CELL DISTRIBUTION WIDTH 12.6 % (11.5-14.5); WHITE BLOOD COUNT 5.5 K/mm3 (4.8-10.8)
[2019-12-12 12:19] LABS: POTASSIUM 3.8 mmol/L (3.5-5.1)
[2019-12-12 12:20] LABS: ALBUMIN 3.9 g/dL (3.4-4.8); URINE APPEARANCE CLEAR; URINE BILIRUBIN NEGATIVE (NEGATIVE); URINE BLOOD NEGATIVE (NEGATIVE); URINE COLOR YELLOW; URINE GLUCOSE NEGATIVE (NEGATIVE); URINE KETONE NEGATIVE (NEGATIVE); URINE LEUKOCYTE ESTERASE NEGATIVE (NEGATIVE); URINE MUCUS PRESENT (NOT PRESENT); URINE NITRATE NEGATIVE (NEGATIVE); URINE PROTEIN(semi-quant) TRACE mg/dL (NEGATIVE); URINE UROBILINOGEN NORMAL (NORMAL); URINE WBC 0-1 /hpf (0-3)
[2019-12-12 12:21] LABS: CALCIUM 9.4 mg/dL (8.3-10.5)
[2019-12-12 12:22] LABS: TOTAL PROTEIN 6.9 g/dL (6.2-8.1)
[2019-12-12 12:24] LABS: TOTAL BILIRUBIN 0.7 mg/dL (0.2-1.2)
[2019-12-13 04:19] LABS: TESTOSTERONE <13 ng/dL (221-716)
== END ==
LOC: RAD 11:54
PROVIDERS: Internal Medicine
DX: M48.02 Spinal stenosis, cervical region (principal); M48.03 Spinal stenosis, cervicothoracic region; M43.13 Spondylolisthesis, cervicothoracic region; E11.9 Type 2 diabetes mellitus without complications; K90.9 Intestinal malabsorption, unspecified; I11.9 Hypertensive heart disease without heart failure; I50.9 Heart failure, unspecified; M10.9 Gout, unspecified; R53.0 Neoplastic (malignant) related fatigue; R20.2 Paresthesia of skin; N52.9 Male erectile dysfunction, unspecified; M54.13 Radiculopathy, cervicothoracic region
CPT/HCPCS: A9585

== ENCOUNTER → 2020-06-17 | Outpatient (CLI) | payer MEDICARE, OTHER ==
[~2020-06-17] MED LIST changes: +MEDROL DOSEPAK4 MG PO; +VOLTAREN ARTHRI20 GM TOP
== END ==
LOC: LAB 10:30
DX: C61 Malignant neoplasm of prostate (principal)

== ENCOUNTER → 2020-06-29 | Outpatient (CLI) | payer MEDICARE, OTHER | LOC: LAB 11:03 | DX: Z20.822 Contact with and (suspected) exposure to COVID-19 (principal) ==

== ENCOUNTER 2020-08-25 07:43 | Emergency (ER) | payer MEDICARE, OTHER ==
[~2020-08-25] VITALS: Ht 172.7 cm; Wt 8189.0 kg
[~2020-08-25 07:43] MED LIST changes: -MEDROL DOSEPAK4 MG PO; -VOLTAREN ARTHRI20 GM TOP
[2020-08-25] MEDS ORDERED: FLOMAX0.4 MG PO (07:56)
[2020-08-25] MEDS ORDERED: VOLTAREN ARTHRI20 GM TOP (07:57)
[2020-08-25 09:56] LABS: BASO # 0.02 (0.02-0.10); EOS # 0.03 (0.04-0.40); EOS % 0.4 % (0.0-4.0); HEMATOCRIT 42.1 % (42.0-52.0); HEMOGLOBIN 14.2 g/dL (13.5-18.0); LYMPH# 0.81 (1.50-4.00); MEAN CELL VOLUME 93 fl (78-100); MEAN CORPUSCULAR HEMOGLOBIN 31 pg (27-31); MEAN CORPUSCULAR HGB CONC 34 g/dL (33-37); MEAN PLATELET VOLUME 10.6 fl (7.4-10.4); MONO # 0.85 (0.20-0.80); NEU # 6.37 (1.40-6.50); PLATELET COUNT 130 K/mm3 (130-400); RED BLOOD COUNT 4.52 M/mm3 (4.20-5.60); WHITE BLOOD COUNT 8.1 K/mm3 (4.8-10.8)
[2020-08-25 10:07] LABS: URINE APPEARANCE CLEAR; URINE BILIRUBIN NEGATIVE (NEGATIVE); URINE BLOOD NEGATIVE (NEGATIVE); URINE COLOR YELLOW; URINE GLUCOSE NEGATIVE (NEGATIVE); URINE KETONE NEGATIVE (NEGATIVE); URINE LEUKOCYTE ESTERASE NEGATIVE (NEGATIVE); URINE MUCUS PRESENT (NOT PRESENT); URINE NITRATE NEGATIVE (NEGATIVE); URINE PROTEIN(semi-quant) NEGATIVE (NEGATIVE); URINE UROBILINOGEN NORMAL (NORMAL)
[2020-08-25 10:19] LABS: ALBUMIN 3.8 g/dL (3.4-4.8)
[2020-08-25 10:20] LABS: POTASSIUM 4.2 mmol/L (3.5-5.1)
[2020-08-25 10:21] LABS: CALCIUM 9.2 mg/dL (8.3-10.5)
[2020-08-25 10:22] LABS: TOTAL PROTEIN 6.7 g/dL (6.2-8.1)
[2020-08-25 10:24] LABS: TOTAL BILIRUBIN 2.1 mg/dL (0.2-1.2)
[2020-08-25 12:22] VITALS: BP 184/93
[2020-08-25] MEDS ORDERED: MEDROL DOSEPAK4 MG PO (12:31)
== END 2020-08-25 12:37 | disposition home or self-care (01) ==
LOC: ED 07:43
PROVIDERS: Nurse Practitioner
DX: M85.871 Other specified disorders of bone density and structure, right ankle and foot (principal); I10 Essential (primary) hypertension; E11.9 Type 2 diabetes mellitus without complications; G47.00 Insomnia, unspecified; Z87.891 Personal history of nicotine dependence; Z79.899 Other long term (current) drug therapy; Z79.02 Long term (current) use of antithrombotics/antiplatelets
CPT/HCPCS: 15970; L4386

== ENCOUNTER → 2020-11-19 | Outpatient (CLI) | payer MEDICARE, OTHER ==
[~2020-11-19] MED LIST changes: +MEDROL DOSEPAK4 MG PO; +VOLTAREN ARTHRI20 GM TOP
== END ==
LOC: LAB 13:30
DX: C61 Malignant neoplasm of prostate (principal)

== ENCOUNTER → 2021-04-07 | Outpatient (CLI) | payer MEDICARE, OTHER | LOC: LAB 09:20 | DX: C61 Malignant neoplasm of prostate (principal) ==

== ENCOUNTER → 2021-05-25 | Outpatient (CLI) | payer MEDICARE, OTHER ==
[2021-05-25 09:56] LABS: POTASSIUM 4.2 mmol/L (3.5-5.1)
[2021-05-25 09:57] LABS: ALBUMIN 3.9 g/dL (3.4-4.8)
[2021-05-25 09:58] LABS: CALCIUM 9.8 mg/dL (8.3-10.5)
[2021-05-25 09:59] LABS: TOTAL PROTEIN 6.2 g/dL (6.2-8.1)
[2021-05-25 10:06] LABS: MAGNESIUM 2.11 mg/dL (1.60-2.60)
[2021-05-25 11:22] LABS: BASO # 0.03 K/mm3 (0.02-0.10); EOS % 2.3 % (0.0-4.0); HEMATOCRIT 44.9 % (42.0-52.0); HEMOGLOBIN 14.5 g/dL (13.5-18.0); LYMPH# 0.91 K/mm3 (1.50-4.00); MEAN CELL VOLUME 96 fl (78-100); MEAN CORPUSCULAR HEMOGLOBIN 31 pg (27-31); MEAN CORPUSCULAR HGB CONC 32 g/dL (33-37); MEAN PLATELET VOLUME 11.2 fl (7.4-10.4); MONO # 0.39 K/mm3 (0.20-0.80); NEU # 2.92 K/mm3 (1.40-6.50); PLATELET COUNT 125 K/mm3 (130-400); RED BLOOD COUNT 4.67 M/mm3 (4.20-5.60); RED CELL DISTRIBUTION WIDTH 12.2 % (11.5-14.5); WHITE BLOOD COUNT 4.4 K/mm3 (4.8-10.8)
[2021-05-25 11:33] LABS: PH-URINE 5.5 (5.0 - 8.0); URINE APPEARANCE HAZY; URINE BILIRUBIN NEGATIVE (NEGATIVE); URINE BLOOD NEGATIVE (NEGATIVE); URINE COLOR YELLOW; URINE GLUCOSE 50 mg/dL (NEGATIVE); URINE KETONE NEGATIVE (NEGATIVE); URINE LEUKOCYTE ESTERASE NEGATIVE (NEGATIVE); URINE NITRATE NEGATIVE (NEGATIVE); URINE PROTEIN(semi-quant) NEGATIVE (NEGATIVE); URINE UROBILINOGEN NORMAL (NORMAL)
[2021-05-25 11:34] LABS: URINE WBC 0-1 /hpf (0-3)
[2021-05-25 13:15] LABS: ERYTHROCYTE SEDIMENTATION RATE 2 mm/hr (0-20)
== END ==
LOC: LAB 09:08
PROVIDERS: Internal Medicine
DX: M47.812 Spondylosis without myelopathy or radiculopathy, cervical region (principal); K90.9 Intestinal malabsorption, unspecified; I10 Essential (primary) hypertension; E11.9 Type 2 diabetes mellitus without complications; C61 Malignant neoplasm of prostate; I11.9 Hypertensive heart disease without heart failure; R26.0 Ataxic gait

== ENCOUNTER → 2021-05-31 | Outpatient (CLI) | payer MEDICARE, OTHER | LOC: RAD 07:50 | DX: I67.82 Cerebral ischemia (principal) | CPT/HCPCS: A9585 ==

== ENCOUNTER → 2021-06-08 | Outpatient (CLI) | payer MEDICARE, OTHER | LOC: VAS 13:49 → RAD 14:30 | DX: I63.9 Cerebral infarction, unspecified (principal) ==

== ENCOUNTER 2021-06-16 08:23 | Outpatient (RCR) | payer MEDICARE, OTHER | END 2021-07-13 | disposition home or self-care (01) | LOC: PT | DX: I69.30 Unspecified sequelae of cerebral infarction (principal) ==

== ENCOUNTER 2021-07-16 08:00 | Outpatient (RCR) | payer MEDICARE, OTHER | END 2021-07-27 17:00 | disposition still patient (30) | LOC: PT 08:00 | DX: I69.351 Hemiplegia and hemiparesis following cerebral infarction affecting right dominant side (principal) ==

== ENCOUNTER → 2021-07-23 | Outpatient (CLI) | payer MEDICARE, OTHER ==
[2021-07-23 13:53] LABS: BASO # 0.02 K/mm3 (0.02-0.10); EOS # 0.19 K/mm3 (0.04-0.40); EOS % 3.9 % (0.0-4.0); HEMOGLOBIN 13.1 g/dL (13.5-18.0); LYMPH# 1.08 K/mm3 (1.50-4.00); MEAN CELL VOLUME 92 fl (78-100); MEAN CORPUSCULAR HEMOGLOBIN 31 pg (27-31); MEAN CORPUSCULAR HGB CONC 34 g/dL (33-37); MONO # 0.46 K/mm3 (0.20-0.80); PLATELET COUNT 136 K/mm3 (130-400); RED BLOOD COUNT 4.24 M/mm3 (4.20-5.60); RED CELL DISTRIBUTION WIDTH 12.3 % (11.5-14.5); WHITE BLOOD COUNT 4.9 K/mm3 (4.8-10.8)
[2021-07-23 14:03] LABS: ALBUMIN 3.7 g/dL (3.4-4.8); POTASSIUM 4.1 mmol/L (3.5-5.1)
[2021-07-23 14:05] LABS: CALCIUM 9.6 mg/dL (8.3-10.5)
[2021-07-23 14:06] LABS: TOTAL PROTEIN 6.1 g/dL (6.2-8.1)
[2021-07-23 14:08] LABS: TOTAL BILIRUBIN 0.8 mg/dL (0.2-1.2)
== END ==
LOC: LAB 13:42
PROVIDERS: Internal Medicine
DX: I10 Essential (primary) hypertension (principal); K90.9 Intestinal malabsorption, unspecified; E78.2 Mixed hyperlipidemia; E11.9 Type 2 diabetes mellitus without complications

== ENCOUNTER → 2021-09-27 | Outpatient (CLI) | payer MEDICARE, OTHER ==
[2021-09-27 11:15] LABS: BASO # 0.02 K/mm3 (0.02-0.10); EOS # 0.14 K/mm3 (0.04-0.40); EOS % 2.7 % (0.0-4.0); HEMATOCRIT 42.2 % (42.0-52.0); LYMPH# 0.98 K/mm3 (1.50-4.00); MEAN CELL VOLUME 95 fl (78-100); MEAN CORPUSCULAR HEMOGLOBIN 32 pg (27-31); MEAN CORPUSCULAR HGB CONC 33 g/dL (33-37); MEAN PLATELET VOLUME 9.9 fl (7.4-10.4); MONO # 0.44 K/mm3 (0.20-0.80); NEU # 3.69 K/mm3 (1.40-6.50); PLATELET COUNT 122 K/mm3 (130-400); RED BLOOD COUNT 4.45 M/mm3 (4.20-5.60); RED CELL DISTRIBUTION WIDTH 12.1 % (11.5-14.5); WHITE BLOOD COUNT 5.3 K/mm3 (4.8-10.8)
[2021-09-27 11:47] LABS: ALBUMIN 4.1 g/dL (3.4-4.8); POTASSIUM 3.9 mmol/L (3.5-5.1); SODIUM 142 mmol/L (136-145)
[2021-09-27 11:48] LABS: CALCIUM 9.8 mg/dL (8.3-10.5)
[2021-09-27 11:49] LABS: GLUCOSE 164 mg/dL (75-110)
[2021-09-27 11:50] LABS: TOTAL PROTEIN 6.6 g/dL (6.2-8.1)
[2021-09-27 11:51] LABS: CARBON DIOXIDE 26 mmol/L (23-31)
[2021-09-27 11:55] LABS: AST-SGOT 21 U/L (5-34)
[2021-09-27 11:56] LABS: ALT/SGPT 16 U/L (0-55); MAGNESIUM 2.11 mg/dL (1.60-2.60)
[2021-09-27 13:47] LABS: ERYTHROCYTE SEDIMENTATION RATE 12 mm/hr (0-20)
[2021-09-27 14:23] LABS: TOTAL BILIRUBIN 1.1 mg/dL (0.2-1.2)
== END ==
LOC: LAB 10:05
PROVIDERS: Internal Medicine
DX: M47.812 Spondylosis without myelopathy or radiculopathy, cervical region (principal); E11.9 Type 2 diabetes mellitus without complications; K90.9 Intestinal malabsorption, unspecified; I11.9 Hypertensive heart disease without heart failure; C61 Malignant neoplasm of prostate; I63.9 Cerebral infarction, unspecified

== ENCOUNTER → 2022-03-01 | Outpatient (CLI) | payer MEDICARE, OTHER ==
[~2022-03-01] MED LIST changes: +AMLODIPINE BESYL5 MG PO; +CEFDINIR300 MG PO; +MELOXICAM15 MG PO; +MIRALAX17 GM PO; +MORGIDOX 1X100100 MG PO; +ROSUVASTATIN CA10 MG PO
[2022-03-01 10:05] LABS: BASO # 0.02 K/mm3 (0.02-0.10); EOS # 0.41 K/mm3 (0.04-0.40); EOS % 4.6 % (0.0-4.0); HEMATOCRIT 39.9 % (42.0-52.0); HEMOGLOBIN 12.5 g/dL (13.5-18.0); LYMPH# 0.72 K/mm3 (1.50-4.00); MEAN CELL VOLUME 96 fl (78-100); MEAN CORPUSCULAR HEMOGLOBIN 30 pg (27-31); MEAN CORPUSCULAR HGB CONC 31 g/dL (33-37); MEAN PLATELET VOLUME 10.7 fl (7.4-10.4); MONO # 0.81 K/mm3 (0.20-0.80); PLATELET COUNT 134 K/mm3 (130-400); RED BLOOD COUNT 4.14 M/mm3 (4.20-5.60)
[2022-03-01 10:07] LABS: ALBUMIN 3.2 g/dL (3.4-4.8); POTASSIUM 4.2 mmol/L (3.5-5.1); SODIUM 139 mmol/L (136-145)
[2022-03-01 10:09] LABS: CALCIUM 9.6 mg/dL (8.3-10.5)
[2022-03-01 10:10] LABS: GLUCOSE 145 mg/dL (75-110); TOTAL PROTEIN 5.9 g/dL (6.2-8.1)
[2022-03-01 10:11] LABS: CARBON DIOXIDE 27 mmol/L (23-31)
[2022-03-01 10:12] LABS: TOTAL BILIRUBIN 1.5 mg/dL (0.2-1.2)
[2022-03-01 10:15] LABS: AST-SGOT 14 U/L (5-34)
[2022-03-01 10:16] LABS: ALT/SGPT 10 U/L (0-55)
[2022-03-01 10:22] LABS: TROPONIN-I < 0.030 ng/mL (<0.030)
== END ==
LOC: LAB 09:38
PROVIDERS: Internal Medicine
DX: J18.9 Pneumonia, unspecified organism (principal); R07.9 Chest pain, unspecified

== ENCOUNTER 2022-03-08 12:13 | Emergency (ER) | payer MEDICARE, OTHER ==
[~2022-03-08] VITALS: Ht 172.7 cm; Wt 71.8 kg
[~2022-03-08 12:13] MED LIST changes: -AMLODIPINE BESYL5 MG PO; -MIRALAX17 GM PO
[2022-03-08 12:55] LABS: BASO # 0.01 K/mm3 (0.02-0.10); EOS # 0.02 K/mm3 (0.04-0.40); EOS % 0.1 % (0.0-4.0); HEMATOCRIT 32.9 % (42.0-52.0); HEMOGLOBIN 10.3 g/dL (13.5-18.0); LYMPH# 0.74 K/mm3 (1.50-4.00); MEAN CELL VOLUME 96 fl (78-100); MEAN CORPUSCULAR HEMOGLOBIN 30 pg (27-31); MEAN CORPUSCULAR HGB CONC 31 g/dL (33-37); MEAN PLATELET VOLUME 10.4 fl (7.4-10.4); MONO # 1.33 K/mm3 (0.20-0.80); NEU # 11.78 K/mm3 (1.40-6.50); PLATELET COUNT 152 K/mm3 (130-400); RED BLOOD COUNT 3.43 M/mm3 (4.20-5.60); RED CELL DISTRIBUTION WIDTH 13.5 % (11.5-14.5); WHITE BLOOD COUNT 13.9 K/mm3 (4.8-10.8)
[2022-03-08 13:03] LABS: ALBUMIN 2.9 g/dL (3.4-4.8)
[2022-03-08 13:21] LABS: TROPONIN-I 0.107 ng/mL (<0.030)
[2022-03-08 13:28] LABS: CALCIUM 9.3 mg/dL (8.3-10.5)
[2022-03-08 13:31] LABS: TOTAL BILIRUBIN 1.3 mg/dL (0.2-1.2)
[2022-03-08] MEDS ORDERED: AMLODIPINE BESYL5 MG PO (13:56)
[2022-03-08] MEDS ORDERED: MIRALAX17 GM PO (13:58)
[2022-03-08 14:07] LABS: D-DIMER 1.77 mg/L FEU (0.15-0.50)
[2022-03-08 15:45] LABS: URINE APPEARANCE CLEAR; URINE BILIRUBIN NEGATIVE (NEGATIVE); URINE BLOOD TRACE (NEGATIVE); URINE COLOR YELLOW; URINE GLUCOSE NEGATIVE (NEGATIVE); URINE KETONE NEGATIVE (NEGATIVE); URINE LEUKOCYTE ESTERASE TRACE (NEGATIVE); URINE MUCUS PRESENT (NOT PRESENT); URINE NITRATE NEGATIVE (NEGATIVE); URINE PROTEIN(semi-quant) 1+ (NEGATIVE); URINE UROBILINOGEN NORMAL (NORMAL)
[2022-03-08 18:38] VITALS: BP 121/78
== END 2022-03-08 18:38 | disposition short-term general hospital (02) ==
LOC: ED 12:13
PROVIDERS: Physician Assistant
DX: J90 Pleural effusion, not elsewhere classified (principal); I95.9 Hypotension, unspecified; R09.02 Hypoxemia; R77.8 Other specified abnormalities of plasma proteins; R29.6 Repeated falls; D72.829 Elevated white blood cell count, unspecified; J18.9 Pneumonia, unspecified organism; R79.89 Other specified abnormal findings of blood chemistry
CPT/HCPCS: J2543; J3370; J7040; J7050; Q9967

== ENCOUNTER → 2022-04-15 | Outpatient (CLI) | payer MEDICARE, OTHER ==
[~2022-04-15] MED LIST changes: +AMLODIPINE BESYL5 MG PO; +MIRALAX17 GM PO
== END ==
LOC: RAD 11:56
DX: J90 Pleural effusion, not elsewhere classified (principal); J18.9 Pneumonia, unspecified organism

== ENCOUNTER → 2023-03-03 | Outpatient (CLI) | payer MEDICARE, OTHER ==
[2023-03-03 14:14] LABS: CALCIUM 9.6 mg/dL (8.3-10.5)
[2023-03-03 14:15] LABS: TOTAL PROTEIN 6.5 g/dL (6.2-8.1)
[2023-03-03 14:17] LABS: TOTAL BILIRUBIN 0.6 mg/dL (0.2-1.2)
== END ==
LOC: LAB 13:49
PROVIDERS: Internal Medicine
DX: B35.1 Tinea unguium (principal)

== ENCOUNTER → 2023-03-07 | Outpatient (CLI) | payer MEDICARE, OTHER | LOC: RAD 08:44 | DX: N28.1 Cyst of kidney, acquired (principal) | CPT/HCPCS: Q9967 ==

== ENCOUNTER → 2023-07-04 | Outpatient (CLI) | payer MEDICARE, OTHER ==
[2023-08-24 10:15] LABS: BASO # 0.01 K/mm3 (0.02-0.10); EOS # 0.13 K/mm3 (0.04-0.40); EOS % 2.6 % (0.0-4.0); HEMATOCRIT 46.9 % (42.0-52.0); HEMOGLOBIN 15.5 g/dL (13.5-18.0); MEAN CELL VOLUME 97 fl (78-100); MEAN CORPUSCULAR HEMOGLOBIN 32 pg (27-31); MEAN CORPUSCULAR HGB CONC 33 g/dL (33-37); MEAN PLATELET VOLUME 10.3 fl (7.4-10.4); MONO # 0.54 K/mm3 (0.20-0.80); NEU # 3.12 K/mm3 (1.40-6.50); PLATELET COUNT 150 K/mm3 (130-400); RED BLOOD COUNT 4.83 M/mm3 (4.20-5.60); RED CELL DISTRIBUTION WIDTH 12.2 % (11.5-14.5)
[2023-08-24 10:22] LABS: ALBUMIN 4.3 g/dL (3.4-4.8); CALCIUM 10.2 mg/dL (8.3-10.5); MAGNESIUM 2.06 mg/dL (1.60-2.60); TOTAL PROTEIN 6.8 g/dL (6.2-8.1)
[2023-08-24 10:24] LABS: URINE APPEARANCE CLEAR (CLEAR); URINE BILIRUBIN NEGATIVE (NEGATIVE); URINE BLOOD TRACE (NEGATIVE); URINE COLOR YELLOW (YELLOW); URINE GLUCOSE NEGATIVE (NEGATIVE); URINE KETONE NEGATIVE (NEGATIVE); URINE LEUKOCYTE ESTERASE NEGATIVE (NEGATIVE); URINE NITRATE NEGATIVE (NEGATIVE); URINE PROTEIN(semi-quant) NEGATIVE (NEGATIVE)
== END ==
LOC: LAB 08:00
PROVIDERS: Internal Medicine
DX: I10 Essential (primary) hypertension (principal); E11.9 Type 2 diabetes mellitus without complications; K90.9 Intestinal malabsorption, unspecified; E78.2 Mixed hyperlipidemia

== ENCOUNTER → 2024-01-02 | Outpatient (CLI) | payer MEDICARE, OTHER ==
[2024-01-02 10:55] LABS: BASO # 0.02 K/mm3 (0.02-0.10); HEMATOCRIT 45.1 % (42.0-52.0); HEMOGLOBIN 15.1 g/dL (13.5-18.0); LYMPH# 0.87 K/mm3 (1.50-4.00); MEAN CELL VOLUME 98 fl (78-100); MEAN CORPUSCULAR HEMOGLOBIN 33 pg (27-31); MEAN CORPUSCULAR HGB CONC 34 g/dL (33-37); MEAN PLATELET VOLUME 10.4 fl (7.4-10.4); MONO # 0.93 K/mm3 (0.20-0.80); NEU # 4.57 K/mm3 (1.40-6.50); PLATELET COUNT 116 K/mm3 (130-400); RED BLOOD COUNT 4.59 M/mm3 (4.20-5.60); RED CELL DISTRIBUTION WIDTH 12.7 % (11.5-14.5); WHITE BLOOD COUNT 6.6 K/mm3 (4.8-10.8)
[2024-01-02 11:02] LABS: ALBUMIN 4.2 g/dL (3.4-4.8)
[2024-01-02 11:03] LABS: CALCIUM 10.2 mg/dL (8.3-10.5)
[2024-01-02 11:04] LABS: TOTAL PROTEIN 6.7 g/dL (6.2-8.1)
[2024-01-02 11:06] LABS: TOTAL BILIRUBIN 1.3 mg/dL (0.2-1.2)
[2024-01-02 11:11] LABS: MAGNESIUM 2.02 mg/dL (1.60-2.60)
[2024-01-02 11:20] LABS: PH-URINE 5.5 (5.0 - 8.0); URINE APPEARANCE CLEAR (CLEAR); URINE BILIRUBIN 1+ (NEGATIVE); URINE BLOOD NEGATIVE (NEGATIVE); URINE COLOR YELLOW (YELLOW); URINE GLUCOSE NEGATIVE (NEGATIVE); URINE KETONE NEGATIVE (NEGATIVE); URINE LEUKOCYTE ESTERASE NEGATIVE (NEGATIVE); URINE MUCUS PRESENT (NOT PRESENT); URINE NITRATE NEGATIVE (NEGATIVE); URINE PROTEIN(semi-quant) NEGATIVE (NEGATIVE)
== END ==
LOC: LAB 10:37
PROVIDERS: Internal Medicine
DX: C61 Malignant neoplasm of prostate (principal); E11.9 Type 2 diabetes mellitus without complications; K90.9 Intestinal malabsorption, unspecified; E78.2 Mixed hyperlipidemia; I10 Essential (primary) hypertension